=== PATIENT | male | born 1995 | race Caucasian/White ===

== ENCOUNTER → 2024-02-24 06:24 | Day surgery (SDC) | payer OTHER, SELFPAY | LOC: GI 06:24 | PROVIDERS: ATTENDING PHYSICIAN Internal Medicine Gastroenterology | DX: K50.10 Crohn's disease of large intestine without complications (principal); K29.50 Unspecified chronic gastritis without bleeding | CPT/HCPCS: 45380; 88305 ==

== ENCOUNTER → 2024-12-23 17:50 | Outpatient (REF) | payer OTHER, SELFPAY | LOC: RAD 17:50 | PROVIDERS: ATTENDING PHYSICIAN Internal Medicine Gastroenterology; FAMILY PHYSICIAN Family Medicine | DX: R76.11 Nonspecific reaction to tuberculin skin test without active tuberculosis (principal) | CPT/HCPCS: 71046 ==

== ENCOUNTER → 2025-02-10 15:23 | Outpatient (REF) | payer OTHER, SELFPAY | LOC: RAD 15:23 | PROVIDERS: ATTENDING PHYSICIAN Internal Medicine Rheumatology; FAMILY PHYSICIAN Family Medicine | DX: M47.819 Spondylosis without myelopathy or radiculopathy, site unspecified (principal); M54.2 Cervicalgia | CPT/HCPCS: 72040; 72070; 72100 ==

== ENCOUNTER → 2025-05-19 13:37 | Outpatient (REF) | payer OTHER, SELFPAY | LOC: RAD 13:37 | PROVIDERS: ATTENDING PHYSICIAN Internal Medicine Rheumatology; FAMILY PHYSICIAN Family Medicine; OTHER PHYSICIAN Specialist | DX: M81.8 Other osteoporosis without current pathological fracture (principal); N50.811 Right testicular pain | CPT/HCPCS: 76870; 93976 ==